=== PATIENT | male | born 1985 | race Caucasian/White ===

== ENCOUNTER 2017-12-02 07:14 | Emergency (ER) | payer OTHER ==
[~2017-12-02] VITALS: Ht 177.8 cm; Wt 83.9 kg
[2017-12-02 07:27] VITALS: Ht 177.8 cm; Wt 83.9 kg
[2017-12-02 07:58] LABS: BASOPHIL % 0.6 % (0-2); PLATELET COUNT 196 x10^3mcL (130-400); RED CELL DISTRIBUTION WIDTH 11.9 % (11.5-14.5)
[2017-12-02 08:08] LABS: CALCIUM 8.6 mg/dL (8.5-10.1); CARBON DIOXIDE 25.7 mmol/L (21-32); CHLORIDE SERUM 105 mmol/L (98-107); GFR1 > 60 mL/min; GLUCOSE SERUM 104 mg/dL (74-106); POTASSIUM SERUM 3.5 mmol/L (3.5-5.1); SODIUM SERUM 144 mmol/L (136-145)
[2017-12-02 08:12] LABS: ALBUMIN 3.8 g/dL (3.4-5.0); ALKALINE PHOSPHATASE 48 U/L (46-116); ALT/SGPT 46 U/L (16-63); AST/SGOT 22 U/L (15-37); BILIRUBIN TOTAL 0.35 mg/dL (0.20-1.00); CHOLESTEROL 182 mg/dL (<200); CHOLESTEROL/HDL RATIO 4.9; HDL CHOLESTEROL 37 mg/dL (40-60); TOTAL PROTEIN, SERUM 7.5 g/dL (6.4-8.2)
[2017-12-02 08:13] LABS: TRIGLYCERIDES 336 mg/dL (<150)
[2017-12-02 09:02] LABS: AMPHETAMINE QUAL UR NONE DETECTED (NEG <=1000)
[2017-12-02 10:10] VITALS: BP 120/85
== END 2017-12-02 10:10 | disposition home or self-care (01) ==
LOC: ED 07:14
PROVIDERS: Emergency Medicine
DX: R07.9 Chest pain, unspecified (principal); E78.1 Pure hyperglyceridemia
CPT/HCPCS: 83880; J1885; J7030; Q0092

== ENCOUNTER 2019-08-01 03:15 | Emergency (ER) | payer OTHER ==
[~2019-08-01] VITALS: Ht 177.8 cm; Wt 81.7 kg
[2019-08-01 03:20] VITALS: BP 127/89; Ht 177.8 cm; Wt 81.7 kg
== END 2019-08-01 06:59 | disposition home or self-care (01) ==
LOC: ED 03:15
DX: S01.81XA Laceration without foreign body of other part of head, initial encounter (principal); S19.9XXA Unspecified injury of neck, initial encounter; Y04.0XXA Assault by unarmed brawl or fight, initial encounter; Y93.89 Activity, other specified; Y92.89 Other specified places as the place of occurrence of the external cause; Y99.8 Other external cause status
CPT/HCPCS: 90715; J2001